=== PATIENT | male | born 1955 | race Hispanic/Latino ===

== ENCOUNTER 2016-12-28 08:39 | Emergency (ER) | payer OTHER ==
[2016-12-28 08:50] VITALS: BP 113/62; PULSE 81; TEMP 97; O2SAT 98; BMI 25.7
--- NOTE | 2016-12-28 09:14 | ED PDOC ---
HPI: General Adult Time Seen by Provider: 12/28/16 09:01 Chief Complaint (Nursing): Abdominal Pain Chief Complaint (Provider): rectal bleeding History Per: Patient History/Exam Limitations: no limitations Additional Complaint(s): 61yo male ,not taking blood thinners, with bright red rectal bleeding independent of passing bowel movements since yesterday. Denies abdominal pain, constipation, diarrhea. States he found a bright red stain on his pants after sitting yesterday. Admits to rectal discomfort and Hx hemorrhoids. Past Medical History Vital Signs: Last Vital Signs Temp 97 F L 12/28/16 08:49 Pulse 81 12/28/16 08:49 Resp BP 113/62 12/28/16 08:49 Pulse Ox 98 12/28/16 10:38 - Surgical History Surgical History: Appendectomy, Tonsillectomy - Family History Family History: States: Unknown Family Hx - Home Medications Home Medications: Ambulatory Orders Medication Instructions Recorded Hydrocortisone 2.5% (Rectal) 30 applic ID BID #1 tube 12/28/16 [Anusol-HC] - Allergies Allergies/Adverse Reactions: Allergies Allergy/AdvReac Type Severity Reaction Status Date / Time No Known Allergies Allergy Verified 12/28/16 09:04 Physical Exam - Reviewed Nursing Documentation Reviewed: Yes Vital Signs Reviewed: Yes - Physical Exam Appears: Positive for: Well, Non-toxic, No Acute Distress Head Exam: Positive for: ATRAUMATIC, NORMAL INSPECTION, NORMOCEPHALIC Skin: Positive for: Warm, Dry Eye Exam: Positive for: EOMI, PERRL Cardiovascular/Chest: Positive for: Regular Rate, Rhythm Respiratory: Positive for: Normal Breath Sounds. Negative for: Rales, Rhonchi, Wheezing Gastrointestinal/Abdominal: Positive for: Soft. Negative for: Tenderness Rectal: Positive for: Other (blood streaks on gloves) - Laboratory Results Result Diagrams: 12/28/16 10:00 12/28/16 10:00 - ECG O2 Sat by Pulse Oximetry: 98 (RA) Pulse Ox Interpretation: Normal Medical Decision Making Medical Decision Makin Patient agrees to labs. Explained CT is indicated however patient refuses CT. advised of risks including continued bleeding, infectious process, perforation, anemia, malignancy, and . Disposition - Clinical Impression Clinical Impression: Rectal bleeding - Patient ED Disposition Is Patient to be Admitted: No Counseled Patient/Family Regarding: Studies Performed, Diagnosis, Need For Followup, Rx Given - Disposition Referrals: Non [facility] Provider, [Primary Care Provider] - Cornelius DALY,MD [place] [Medical Doctor] - Disposition: Routine/Home Disposition Time: 10:31 Condition: FAIR Prescriptions: Hydrocortisone 2.5% (Rectal) [Anusol-HC] 30 applic ID BID #1 tube Instructions: Rectal Bleeding (ED) Additional Comments - Additional Comments Additional Comments: Scribe Attestation: Documented by Tono Macias acting as a scribe for Bernardo Marcos MD. Provider Attestation: All medical record entries made by the Scribe were at my direction and personally dictated by me. I have reviewed the chart and agree that the record accurately reflects my personal performance of the history, physical exam, medical decision making, and the department course for this patient. I have also personally directed, reviewed, and agree with the discharge instructions and disposition.
[2016-12-28 10:20] LABS: BASO # 0.1 K/uL (0.0-0.2); BASO % 0.9 % (0.0-2.0); EOS # 0.3 K/uL (0.0-0.7); EOS % 3.3 % (0.0-4.0); LYMPH # 2.7 K/uL (1.0-4.3); LYMPH % 30.1 % (20.0-40.0); MEAN CORPUSCULAR HGB CONC 33.7 g/dL (33.0-37.0); MEAN PLATELET VOLUME 9.5 fl (7.2-11.7); MONO # 0.6 K/uL (0.0-0.8); MONO % 6.7 % (0.0-10.0); NEUT # 5.2 K/uL (1.8-7.0); NRBC % 0.1 % (0.0-0.0); RED CELL DISTRIBUTION WIDTH 14.4 % (11.5-14.5); WHITE BLOOD COUNT 8.8 K/uL (4.8-10.8)
[2016-12-28 10:30] LABS: ALB/GLOB RATIO 1.7 (1.0-2.1); ALKALINE PHOSPHATASE 48 U/L (38-126); ALT/SGPT 26 U/L (21-72); AST/SGOT 23 U/L (17-59); BILIRUBIN,TOTAL 0.6 mg/dl (0.2-1.3); BLOOD UREA NITROGEN 22 mg/dl (9-20); CALCIUM 8.9 mg/dL (8.4-10.2); CARBON DIOXIDE 24 mmol/L (22-30); CHLORIDE 108 mmol/L (98-107); GFR AFRICAN-AMERICAN > 60; GLUCOSE,RANDOM 87 mg/dL (75-110); POTASSIUM 4.3 MMOL/L (3.6-5.0); SODIUM 141 mmol/l (132-148); TOTAL PROTEIN 6.8 G/DL (6.3-8.2)
== END 2016-12-28 10:45 | disposition home or self-care (01) ==
LOC: H.ER 08:39 → SUPCPDRO 08:39 → H.ER 10:45
DX: K62.5 Hemorrhage of anus and rectum (principal)